=== PATIENT | female | born 1965 | race Caucasian/White ===

== ENCOUNTER → 2024-04-14 11:28 | Outpatient (REF) | payer OTHER, SELFPAY | LOC: WDC 11:28 | PROVIDERS: ATTENDING PHYSICIAN Physician Assistant Medical | DX: Z12.31 Encounter for screening mammogram for malignant neoplasm of breast (principal); Z00.00 Encounter for general adult medical examination without abnormal findings | CPT/HCPCS: 77080 ==

== ENCOUNTER 2025-06-12 06:28 | Day surgery (SDC) | payer OTHER, SELFPAY | END 2025-06-12 08:33 | disposition home or self-care (01) | LOC: GI 06:28 | PROVIDERS: ATTENDING PHYSICIAN Internal Medicine | DX: D12.3 Benign neoplasm of transverse colon (principal); K63.5 Polyp of colon; K63.89 Other specified diseases of intestine; K57.30 Diverticulosis of large intestine without perforation or abscess without bleeding; K64.9 Unspecified hemorrhoids; Z80.0 Family history of malignant neoplasm of digestive organs | CPT/HCPCS: 45385; 88305 ==

== ENCOUNTER → 2025-07-03 16:38 | Outpatient (REF) | payer OTHER, SELFPAY | LOC: RAD 16:38 | PROVIDERS: ATTENDING PHYSICIAN Internal Medicine; FAMILY PHYSICIAN Physician Assistant Medical | DX: K38.8 Other specified diseases of appendix (principal) | CPT/HCPCS: 74177; Q9967 ==